=== PATIENT | male | born 1970 | race Caucasian/White ===

== ENCOUNTER 2023-03-04 17:50 | Emergency (ER) | payer OTHER, SELFPAY ==
--- NOTE | ~2023-03-04 | XR_ITS ---
EXAMINATION: XR chest 2V DATE: 03/04/2023 18:20 INDICATION: Chest pain. TECHNIQUE: Frontal and lateral views of the chest were obtained. COMPARISON: None. FINDINGS: The chest demonstrates clear lungs without pneumonia, pleural effusion, or pneumothorax. Th e heart size is normal. IMPRESSION: 1. No acute cardiopulmonary disease. Reviewed, dictated and finalized at location E.
--- NOTE | 2023-03-04 17:52 | ECG_ITS ---
Measurements Intervals [place] Rate: 93 P: 56 MA: 152 QRS: -12 QRSD: 98 T: 62 QT: 353 QTc: 440 Interpretive Statements SINUS RHYTHM POSSIBLE LEFT ATRIAL ENLARGEMENT INCOMPLETE RIGHT BUNDLE BRANCH BLOCK LEFT VENTRICULAR HYPERTROPHY AND ST-T CHANGE CONSIDER INFERIOR INFARCT, AGE INDETERMINATE ABNORMAL ECG NO PREVIOUS ECG AVAILABLE FOR COMPARISON Electronically Signed On 03-04-2023 20:39:52 CDT by Bautista Keller D.O.
[2023-03-04 17:53] VITALS: BP 220/111; PULSE 101; RESP 16; TEMP 36.9; O2SAT 100
[2023-03-04] MEDS: ASPIRIN 81 MG CHEWABLE TABLET 324 MG PO (17:57)
[2023-03-04 18:10] VITALS: BP 202/115
[2023-03-04 18:15] LABS: Basophils Absolute Auto 0.1 K/mm3 (0.0-0.1); Basophils Percent Auto 0.5 % (0.2-1.2); Eosinophils Absolute Auto 0.3 K/mm3 (0-0.3); Eosinophils Percent Auto 2.8 % (0-4.4); Hematocrit 46.1 % (42.0-52.0); Hemoglobin 15.4 g/dL (14.0-18.0); Immature Granulocyte Absolute 0.04 K/mm3 (0.00-0.031); Immature Granulocyte Percent A 0.4 % (0-0.5); Lymphocytes Absolute Auto 3.87 K/mm3 (0.9-3.2); Mean Corpuscular HGB Conc 33.4 g/dl (32-36); Mean Corpuscular Hemoglobin 32.2 pg (26-34); Mean Corpuscular Volume 96.2 fl (80-100); Mean Platelet Volume 10.3 fl (7.4-10.4); Monocytes Absolute Auto 0.7 K/mm3 (0.1-0.6); Neutrophils Percent Auto 50.3 % (45.5-73.1); Platelet Count Result 237 k/mm3 (150-375); Red Blood Count 4.79 M/mm3 (4.6-6.20); Red Cell Distribution Width 12.6 % (11.5-14.5); White Blood Count 9.9 K/mm3 (4.5-10.0)
[2023-03-04 18:26] LABS: Alanine Aminotransferase 54 U/L (6-50); Albumin Level 4.9 g/dL (3.5-5.1); Alkaline Phosphatase 74 U/L (38-126); Anion Gap 8 mmol/L (8-16); Aspartate Amino Transferase 37 U/L (17-59); Bilirubin,Total 0.7 mg/dL (0.2-1.3); Blood Urea Nitrogen 17 mg/dL (9-20); Calcium 9.5 mg/dL (8.4-10.2); Carbon Dioxide 26 mmol/L (22-30); Chloride 100 mmol/L (98-107); Estimated CRCL calculation 84 ml/min; Estimated Glomerular Filt Rate > 60; Glucose 128 mg/dL (65-110); Lipase 182 U/L (23-300); Potassium 3.8 mmol/L (3.4-5.0); Sodium 134 mmol/L (137-145)
[2023-03-04 18:27] LABS: INR 0.9; Prothrombin Time 12.8 Seconds (11.1-14.7)
[2023-03-04 18:28] LABS: Partial Thromboplastin Time 33.4 SECONDS (22.3-36.8)
[2023-03-04 18:38] LABS: Troponin I < 0.012 ng/mL (0.000-0.034)
[2023-03-04 19:56] VITALS: BP 205/122; PULSE 79; RESP 17; O2SAT 100
[2023-03-04 21:25] VITALS: BP 208/110; PULSE 74; RESP 15; O2SAT 100
[2023-03-04 21:56] LABS: Troponin I < 0.012 ng/mL (0.000-0.034)
--- NOTE | 2023-03-04 22:35 | ED.GENADULT ---
HPI - General Adult General Chief complaint: Chest Pain Stated complaint: Chest pain Time Seen by Provider: 03/04/23 21:43 History of Present Illness HPI narrative: Patient 53-year-old gentleman who presents the emergency department with chief complaint of hypertension patient reports that he started having some discomfort in his chest yesterday has been pretty well constant patient also notices blood pressure was elevated and was elevated up to the 200s when measured on a [employer] blood pressure cuff patient does report that he has just been assigned a new primary care physician patient reports that he is currently not on any medications has not seen a physician for almost 40 years patient reports currently his symptoms are extremely mild denies focal neurological deficits denies headache denies shortness of breath. Related Data Allergies Allergy/AdvReac Type Severity Reaction Status Date / Time codeine Allergy Vomiting Verified 03/04/23 21:26 Review of Systems Review of Systems: A 10 system review of systems was completed on the patient and is negative except for what is stated in the HPI. Nursing and ancillary documentation was reviewed. Exam Narrative: GENERAL: Well-appearing, well-nourished, and in no acute distress. HEAD: Normocephalic, atraumatic. EYES: PERRLA and EOMI. ENT: Nares clear, no rhinorrhea or epistaxis. Mucous membranes moist. NECK: Supple. CHEST: Clear to auscultation. No respiratory distress. HEART: Regular rate and rhythm. No murmur heard. Normal peripheral pulses. ABDOMEN: Soft, nontender, nondistended, normal active bowel sounds. EXTREMITIES: Normal range of motion. No edema. SKIN: Warm, dry, no rash. NEURO: No focal deficits. Alert and oriented x3. PSYCH: Normal mood and affect. Course Vital Signs Vital signs: Vital Signs Temperature 36.9 C 03/04/23 17:53 Pulse Rate 101 H 03/04/23 17:53 Respiratory Rate 16 03/04/23 17:53 Blood Pressure 220/111 H 03/04/23 17:53 Pulse Oximetry 100 03/04/23 17:53 Oxygen Delivery Room Air 03/04/23 17:53 Temperature 36.9 C 03/04/23 17:53 Pulse Rate 74 03/04/23 21:25 Respiratory Rate 15 03/04/23 21:25 Blood Pressure 208/110 H 03/04/23 21:25 Pulse Oximetry 100 03/04/23 21:25 Oxygen Delivery Room Air 03/04/23 17:53 Medical Decision Making MDM Narrative Medical decision making narrative: Differential diagnosis includes accelerated hypertension, ACS, hypertensive crisis, EKG showed in complete right bundle branch block Chest x-ray showed no focal infiltrate Laboratory studies showed a normal CBC CMP showed a sodium of 134 and a glucose of 128. Patient does not have any active chest pain at this time blood pressures were moderately elevated and the patient is showing no signs of acute focal neurological deficit or acute hypertensive crisis Patient will be started on lisinopril as he has normal renal function Vital Signs Vital Signs: Vital Signs Temperature 36.9 C 03/04/23 17:53 Pulse Rate 101 H 03/04/23 17:53 Respiratory Rate 16 03/04/23 17:53 Blood Pressure 220/111 H 03/04/23 17:53 Pulse Oximetry 100 03/04/23 17:53 Oxygen Delivery Room Air 03/04/23 17:53 Temperature 36.9 C 03/04/23 17:53 Pulse Rate 74 03/04/23 21:25 Respiratory Rate 15 03/04/23 21:25 Blood Pressure 208/110 H 03/04/23 21:25 Pulse Oximetry 100 03/04/23 21:25 Oxygen Delivery Room Air 03/04/23 17:53 Lab Data 03/04/23 18:07 03/04/23 18:07 Labs: Lab Results 03/04/23 03/04/23 Range/Units 18:07 21:25 WBC 9.9 (4.5-10.0) K/mm3 RBC 4.79 (4.6-6.20) M/mm3 Hgb 15.4 (14.0-18.0) g/dL Hct 46.1 (42.0-52.0) % MCV 96.2 (80-100) fl MCH 32.2 (26-34) pg MCHC 33.4 (32-36) g/dl RDW 12.6 (11.5-14.5) % Plt Count 237 (150-375) k/mm3 MPV 10.3 (7.4-10.4) fl Immature Gran % (Auto) 0.4 (0-0.5) % Neut % (Auto) 50.3 (45.5-7
--- NOTE | 2023-03-04 22:57 | PC.NURSE ---
SARAVANAN Heath advised to give Lisinopril now instead of scheduled 0900 dose.
[2023-03-04] MEDS: lisinopriL 20 MG TABLET PO (23:06)
[2023-03-04 23:15] VITALS: BP 182/104; PULSE 78; RESP 16; O2SAT 100
== END 2023-03-04 23:15 | disposition home or self-care (01) ==
PROVIDERS: Preventive Medicine Aerospace Medicine; Emergency Provider Emergency Medicine; PCP Family Medicine Adolescent Medicine
DX: R07.89 Other chest pain (principal); I10 Essential (primary) hypertension
CPT/HCPCS: 36415; 71046; 80053; 83690; 84484; 85025; 85610; 85730; 93005; 99284; A9270